=== PATIENT | male | born 1930 | race Caucasian/White ===

== ENCOUNTER 2017-12-23 16:18 | Emergency (ER) | payer MEDICARE, OTHER ==
[~2017-12-23] VITALS: Ht 180.3 cm; Wt 81.8 kg
[2017-12-23 16:25] VITALS: BP 135/88; PULSE 117; RESP 18; TEMP 98.2
[2017-12-23 16:39] VITALS: BP 135/88; PULSE 117; RESP 18; TEMP 98.2; O2SAT 98
--- NOTE | 2017-12-23 17:09 | PD ---
HPI Chief Complaint: Psychiatric Symptoms Time Seen by Provider: 17:06 Travel History International Travel<30 days: No Contact w/Intl Traveler<30days: No Traveled to known affect area: No History of Present Illness HPI 87-year-old male presents to the emergency department under [employer]. According to law enforcement report "darlene has recently been diagnosed with dementia and is unable to determine for himself what care is necessary. Anette was placed in an assisted living facility for his own safety. Today darlene told other residents and his daughter that if he was left in the facility he was going to find a way to kill himself. Darlene was transported to [facility] under a Paz act." The patient is alert and oriented 4 on my exam. He tells me he lives at home. He states his made an appointment for him to go be seen and when he got there people were questioning him and now he is here. I am assuming he is talking about going to the living facility and leading up to this visit here at [place]. He denies stating that he made the statement that he was going to kill himself. He denies suicidal or homicidal ideations. Denies auditory or visual hallucinations. Reports drinking wine occasionally. Denies illicit drug use. Denies chest pain, shortness of breath, abdominal pain, change in urine or stool. He does have bruising noted to his right eye. He said he fell on night and hit the floor. He said his knee gave out, causing him to fall. He reports having a brief loss of consciousness. Denies anticoagulant therapy. Denies vomiting. Denies headache. Denies pain. He denies significant past medical history. When asked him if he has dementia, he states "well that is what some people would probably say." His primary care provider is Dr. Larios. He is allergic to penicillin, atorvastatin, pravastatin, prednisone. He has no other medical complaints. No other modifying factors or associated signs and symptoms. PFSH Past Medical History Hx Anticoagulant Therapy: No Cardiovascular Problems: No Chemotherapy: No Cerebrovascular Accident: Yes (6-8 months ago) Diabetes: No Respiratory: No ?: Not Past Surgical History Hysterectomy: No Social History Tobacco Use: No Allergies-Medications (Allergen,Severity, Reaction): Coded Allergies: atorvastatin (Verified Allergy, Mild, 12/23/17) pravastatin (Verified Allergy, Mild, 12/23/17) prednisone (Verified Allergy, Mild, 12/23/17) Uncoded Allergies: penacillain (Allergy, Severe, 12/23/17) Reported Meds & Prescriptions Reported Meds & Active Scripts Active Reported Pravastatin 40 Mg Tab 40 Mg PO DAILY Metoprolol Tartrate 50 Mg Tab 50 Mg PO BID Pantoprazole (Pantoprazole Sodium) 40 Mg Tab 40 Mg PO DAILY Tylenol (Acetaminophen) 325 Mg Tab 325 Mg PO Q8HR Aspirin 325 Mg Tab 325 Mg PO DAILY Lasix (Furosemide) 40 Mg Tab 40 Mg PO DAILY Spironolactone 25 Mg Tab 25 Mg PO DAILY Ambien (Zolpidem Tartrate) 10 Mg Tab 10 Mg PO HS PRN Review of Systems Except as stated in HPI: all other systems reviewed are Neg Physical Exam Narrative GENERAL: Well-nourished, well-developed elderly, male patient, in no acute distress SKIN: Warm and dry. HEAD: Atraumatic. Normocephalic. EYES: Pupils equal and round at 3 mm with brisk reaction. PERRLA. EOMI. Tenderness on palpation to the right lateral orbit of the eye; lateral area of orbit of right eye with ecchymosis and with minimal edema; no open wounds. ENT: Mucosa pink and moist. NECK: Supple. Trachea midline. CARDIOVASCULAR: Regular rate and rhythm. No murmur appreciated. RESPIRATORY: No accessory muscle use. Clear to auscultation. Breath sounds equal bilaterally. GASTROINTESTINAL: Abdomen soft, non-tender, nondistended. Hepatic and splenic margins not palpable. Bowel sounds are active 4 quadrants. MUSCULOSKELETAL: No obvious deformities. No clubbing. No cyanosis. No edema. NEUROLOGICAL: Awake and alert. Oriented 4. No obvious cranial nerve deficits. Motor grossly within normal limits. Normal speech. Moves all extremities. 5/5 strength to all extremities. PSYCHIATRIC: No delusional thought processes. No hallucinations. Data Data Last Documented VS Vital Signs Date Time Temp Pulse Resp B/P (MAP) Pulse Ox O2 Delivery O2 Flow Rate FiO2 12/23/17 16:39 98.2 117 18 135/88 (104) 98 Orders Orders Complete Blood Count With Diff (12/23/17 17:09) Comprehensive Metabolic Panel (12/23/17 17:09) Thyroid Stimulating Hormone (12/23/17 17:09) Urinalysis - C+S If Indicated (12/23/17 17:09) Psych Screen (12/23/17 17:09) Drug Screen, Random Urine (12/23/17 17:09) Alcohol (Ethanol) (12/23/17 17:09) Salicylates (Aspirin) (12/23/17 17:09) Tylenol (Acetaminophen) (12/23/17 17:09) Ct Brain W/O Iv Contrast(Rout) (12/23/17 ) Ct Facial Bones W/O Iv Cont (12/23/17 ) Potassium Chloride (Kcl) (12/23/17 18:30) Potassium Chloride (Kcl) (12/23/17 19:15) Labs Laboratory Tests Test 12/23/17 16:31 White Blood Count 10.0 TH/MM3 Red Blood Count 4.44 MIL/MM3 Hemoglobin 10.8 GM/DL Hematocrit 33.8 % Mean Corpuscular Volume 76.2 FL Mean Corpuscular Hemoglobin 24.4 PG Mean Corpuscular Hemoglobin Concent 32.0 % Red Cell Distribution Width 15.7 % Platelet Count 382 TH/MM3 Mean Platelet Volume 7.7 FL Neutrophils (%) (Auto) 75.8 % Lymphocytes (%) (Auto) 15.9 % Monocytes (%) (Auto) 7.2 % Eosinophils (%) (Auto) 0.6 % Basophils (%) (Auto) 0.5 % Neutrophils # (Auto) 7.6 TH/MM3 Lymphocytes # (Auto) 1.6 TH/MM3 Monocytes # (Auto) 0.7 TH/MM3 Eosinophils # (Auto) 0.1 TH/MM3 Basophils # (Auto) 0.0 TH/MM3 CBC Comment DIFF FINAL Differential Comment Urine Color YELLOW Urine Turbidity CLEAR Urine pH 7.0 Urine Specific [place] 1.010 Urine Protein TRACE mg/dL Urine Glucose (UA) NEG mg/dL Urine Ketones NEG mg/dL Urine Occult Blood NEG Urine Nitrite NEG Urine Bilirubin NEG Urine Urobilinogen LESS THAN 2.0 MG/DL Urine Leukocyte Esterase NEG Urine WBC 1 /hpf Urine Hyaline Casts 20 /lpf Urine Mucus FEW /lpf Microscopic Urinalysis Comment CULT NOT INDICATED Blood Urea Nitrogen 20 MG/DL Creatinine 1.66 MG/DL Random Glucose 120 MG/DL Total Protein 8.4 GM/DL Albumin 4.0 GM/DL Calcium Level 9.9 MG/DL Alkaline Phosphatase 91 U/L Aspartate Amino Transf (AST/SGOT) 10 U/L Alanine Aminotransferase (ALT/SGPT) 12 U/L Total Bilirubin 0.6 MG/DL Sodium Level 138 MEQ/L Potassium Level 2.8 MEQ/L Chloride Level 97 MEQ/L Carbon Dioxide Level 24.1 MEQ/L Anion Gap 17 MEQ/L Estimat Glomerular Filtration Rate 39 ML/MIN Thyroid Stimulating Hormone 3rd Gen 2.820 uIU/ML Salicylates Level LESS THAN 1.7 MG/DL Urine Opiates Screen NEG Acetaminophen Level LESS THAN 2.0 MCG/ML Urine Barbiturates Screen NEG Urine Amphetamines Screen NEG Urine Benzodiazepines Screen NEG Urine Cocaine Screen NEG Urine Cannabinoids Screen NEG Ethyl Alcohol Level LESS THAN 3 MG/DL MDM Medical Decision Making Medical Screen Exam Complete: Yes Emergency Medical Condition: Yes Medical Record Reviewed: Yes Differential Diagnosis Dementia, subdural hematoma, medical clearance for psychiatric admission Narrative Course Patient presents under a Paz act. Physical examination and vital signs are essentially unremarkable. Patient has no medical complaints to report. Psych screen has been ordered. If the laboratory results are unremarkable, the patient will be medically cleared for psychiatric evaluation and disposition. Patient has ecchymosis noted to the right lateral orbit of the eye. He reports a fall on night. He says he hit his head on the floor and loss of consciousness. CT head and CT facial bones ordered. Diagnosis Primary Impression: Medical clearance for psychiatric admission Additional Impressions: Dementia Qualified Codes: F03.91 - Unspecified dementia with behavioral disturbance Hypokalemia Condition: Stable Yeny Shaikh Dec 23, 2017 17:09
[2017-12-23] MEDS ORDERED: TYLE325T PO (17:31)
[2017-12-23] MEDS ORDERED: METO50TA PO (17:31)
[2017-12-23] MEDS ORDERED: PANT40TA3 PO (17:31)
[2017-12-23] MEDS ORDERED: PRAV40TA2 PO (17:31)
[2017-12-23] MEDS ORDERED: SPIR25TA PO (17:31)
[2017-12-23] MEDS ORDERED: FURO1TAB60 PO (17:31)
[2017-12-23] MEDS ORDERED: ASPI-183 PO (17:31)
[2017-12-23] MEDS ORDERED: AMBI10TA PO (17:31)
[2017-12-23 17:33] LABS: BILIRUBIN, URINE NEG (NEG); BLOOD, URINE NEG (NEG); GLUCOSE,URINE NEG (NEG); HYALINE CAST, URINE 20 /lpf (RARE); KETONE, URINE NEG (NEG); MUCUS URINE FEW /lpf (OCC); NITRITE,URINE NEG (NEG); URINE COLOR YELLOW (YELLW/STRAW); URINE LEUKOCYTE ESTERASE NEG (NEG)
[2017-12-23 17:35] LABS: AUTOMATED NEUTROPHIL # 7.6 TH/MM3 (1.8-7.7); BASOPHIL % 0.5 % (0.0-2.0); EOSINOPHIL # 0.1 TH/MM3 (0-0.4); EOSINOPHIL % 0.6 % (0.0-4.0); HEMATOCRIT 33.8 % (39.0-51.0); HEMOGLOBIN 10.8 GM/DL (13.0-17.0); LYMPH % 15.9 % (9.0-44.0); LYMPHOCYTE # 1.6 TH/MM3 (1.0-4.8); MEAN CELL VOLUME 76.2 FL (80.0-100.0); MEAN CORPUSCULAR HEMOGLOBIN 24.4 PG (27.0-34.0); MEAN PLATELET VOLUME 7.7 FL (7.0-11.0); MONO % 7.2 % (0.0-8.0); MONOCYTE # 0.7 TH/MM3 (0-0.9); NEUT % 75.8 % (16.0-70.0); PLATELET COUNT 382 TH/MM3 (150-450); RED BLOOD COUNT 4.44 MIL/MM3 (4.50-5.90); RED CELL DISTRIBUTION WIDTH 15.7 % (11.6-17.2)
[2017-12-23 18:01] LABS: ALKALINE PHOSPHATASE 91 U/L (45-117); ALT (GPT) 12 U/L (12-78); AST (GOT) 10 U/L (15-37); BICARBONATE 24.1 MEQ/L (21.0-32.0); BLOOD UREA NITROGEN 20 MG/DL (7-18); CALCIUM 9.9 MG/DL (8.5-10.1); CHLORIDE 97 MEQ/L (98-107); CREATININE 1.66 MG/DL (0.60-1.30); GLOMERULAR FILTRATION RATE 39 ML/MIN (>89); GLUCOSE,RANDOM 120 MG/DL (74-106); SODIUM (NA) 138 MEQ/L (136-145); TOTAL BILIRUBIN ADULT 0.6 MG/DL (0.2-1.0); TOTAL PROTEIN 8.4 GM/DL (6.4-8.2)
[2017-12-23 18:11] LABS: ACETAMINOPHEN LESS THAN 2.0 MCG/ML (10.0-30.0)
[2017-12-23] MEDS ORDERED: POTASSIUM CHLORIDE 20 MEQ CONTROLLED RELEASE TAB PO ONE ×2 (18:30→19:15)
[2017-12-23 19:19] VITALS: BP 117/81; PULSE 101; RESP 18; O2SAT 98
--- NOTE | 2017-12-23 19:32 | RADRPT ---
EXAM DATE: 12/23/2017 6:58 PM EDT AGE/SEX: 87 years / Male INDICATIONS: Patient fell and hit head. CLINICAL DATA: This is the patient's initial encounter. Patient reports that signs and symptoms have been present for 1 day and indicates a pain score of 3/10. MEDICAL/SURGICAL HISTORY: Cerebrovascular disease. None. RADIATION DOSE: 29.92 CTDI (mGy) COMPARISON: No prior [place] exams available for comparison. TECHNIQUE: CT of the head without contrast. Using automated exposure control and adjustment of the mA and/or kV according to patient size, radiation dose was kept as low as reasonably achievable to ob tain optimal diagnostic quality images. FINDINGS: Cerebrum: The ventricles are normal for age. No evidence of midline shift, mass lesion, hemorrhage or acute infarction. No extraaxial fluid collections are seen. Posterior Fossa: The cerebellum and brainstem are intact. The 4th ventricle is midline. The cerebe llopontine angle is unremarkable. Extracranial: The visualized portion of the orbits is intact. Skull: The calvaria is intact. No evidence of skull fracture. CONCLUSION: 1. No acute intracranial abnormalities. Electronically signed by: Ernesto Contreras MD 12/23/2017 7:30 PM EDT
--- NOTE | 2017-12-23 19:35 | RADRPT ---
EXAM DATE: 12/23/2017 6:59 PM EDT AGE/SEX: 87 years / Male INDICATIONS: Patient fell and hit head. CLINICAL DATA: This is the patient's initial encounter. Patient reports that signs and symptoms have been present for 1 day and indicates a pain score of 3/10. MEDICAL/SURGICAL HISTORY: Cerebrovascular disease. Umbilical hernia repair. RADIATION DOSE: 50.80 CTDI (mGy) COMPARISON: No prior [place] exams available for comparison. TECHNIQUE: Contiguous images in the axial and coronal planes were obtained using helical multirow de tector technique. Using automated exposure control and adjustment of the mA and/or kV according to p atient size, radiation dose was kept as low as reasonably achievable to obtain optimal diagnostic elsy lity images. FINDINGS: No facial bone fractures are identified. Visualized paranasal sinuses are clear. The globes are intac t. Temporomandibular joints appear intact. Dental hardware present. CONCLUSION: 1. No acute findings. Electronically signed by: Ernesto Contreras MD 12/23/2017 7:34 PM EDT
[2017-12-24 06:38] VITALS: BP 130/76; PULSE 79; RESP 18; O2SAT 97
[2017-12-24] MEDS ORDERED: LORazepam 2 MG/ML VIAL IV PUSH ONE (10:30)
--- NOTE | 2017-12-24 11:26 | PD ---
History of Present Illness Chief Complaint: Psychiatric Symptoms Time Seen by Provider: 11:04 Travel History International Travel<30 Days: No Contact w/Intl Traveler<30days: No Known affected area: No Legal Status Legal Status: Paz Act Paz Act Signed By: LAY NORIEGA History of Present Illness: History of Present Illness HPI 87-year-old, , male with no previous psychiatric history, recent fall with head injury, reported presents to the emergency department under Paz act. According to law enforcement report "Tim has recently been diagnosed with dementia and is unable to determine for himself what care is necessary. Tim was placed in an assisted living facility for his own safety. Today Tim told other residents and his daughter that if he was left in the facility he was going to find a way to kill himself." The patient did not make any attempt at harming himself or harming anyone else. The patient has been monitored in the ED. He has not been aggressive. He has required redirection because of wandering outside of his room but has been redirectable with verbal prompting as per nursing report. Patient is seen. He is found sitting on his bed. He is alert, oriented 4. He knows he is not a hospital although he tells me" it feels like a longterm". His complete speech is clear and logical. He answers questions appropriately. He does not appear to be internally stimulated and denies any hallucinations. He denies any depression or anxiety although states he" would like to get out of here and go back home". He denies any suicidal ideation, intent or plan. When he is confronted with the alleged statements on the Paz act he states "I might have said that as a figure of speech." In terms of memory the patient is able to name the president"Hakeem" and the previous President as"Obama". He tells me that he keeps up with what is happening around the world and that they are more is in the [place]. He is able to spell the word WORLD and backwards DLORW. Recall is 3 out of 3, 2 out of 3, 0 out of 3. Telephone call to his at [phone]. No answer. Message with call back number left. Telephone call to his daughter Selena at [phone]. No answer.Unable to leave call back number. PFSH Past Medical History Hx Anticoagulant Therapy: No Cardiovascular Problems: No Chemotherapy: No Cerebrovascular Accident: Yes (6-8 months ago) Diabetes: No Respiratory: No ?: Not Past Surgical History Hysterectomy: No Psychiatric History Psychiatric History Hx Psychiatric Treatment: NONE History of Inpatient Treatment: No Guns or firearms in home: No Social History Patient is born in [place]. 47 years to Tiffany. 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 Was living at home with his until admission to [facility] on December 23, 2017. Hx Alcohol Use: Yes (Occasional glass of wine) Hx Tobacco Use: No Hx Substance Use: No Hx of Substance Use Treatment: No Family Psychiatric History None reported Allergies-Medications (Allergen,Severity, Reaction): Coded Allergies: atorvastatin (Verified Allergy, Mild, 12/23/17) pravastatin (Verified Allergy, Mild, 12/23/17) prednisone (Verified Allergy, Mild, 12/23/17) Penicillins (Verified Allergy, Unknown, 12/24/17) Reported Meds & Prescriptions Reported Meds & Active Scripts Active Reported Pravastatin 40 Mg Tab 40 Mg PO DAILY Metoprolol Tartrate 50 Mg Tab 50 Mg PO BID Pantoprazole (Pantoprazole Sodium) 40 Mg Tab 40 Mg PO DAILY Tylenol (Acetaminophen) 325 Mg Tab 325 Mg PO Q8HR Aspirin 325 Mg Tab 325 Mg PO DAILY Lasix (Furosemide) 40 Mg Tab 40 Mg PO DAILY Spironolactone 25 Mg Tab 25 Mg PO DAILY Ambien (Zolpidem Tartrate) 10 Mg Tab 10 Mg PO HS PRN Review of Systems Psychiatric: DENIES: Anxiety, Confusion, Mood changes, Depression, Hallucinations, Agitation, Suicidal Ideation, Homicidal Ideation, Delusions Mental Status Examination Appearance: Appropriate Consciousness: Alert Orientation: Person, Place, Date/Time Motor Activity: Normal gait Speech: Unremarkable Language: Adequate Fund of Knowledge: Adequate Attention and Concentration: Adequate Memory: Impaired Mood: Appropriate, Anxious (sl anxious) Affect: Appropriate Thought Process & Associations: Intact, Logical, Goal directed Thought Content: Appropriate Hallucination Type: None Delusion Type: None Suicidal Ideation: No Suicidal Plan: No Suicidal Intention: No Homicidal Ideation: No Homicidal Plan: No Homicidal Intention: No Insight: Fair Judgment: Adequate MDM Medical Decision Making Medical Record Reviewed: Yes Assessment/Plan 87-year-old, , male with no previous psychiatric history, recent fall with head injury, reported presents to the emergency department under Paz act. According to law enforcement report "Tim has recently been diagnosed with dementia and is unable to determine for himself what care is necessary. Tim was placed in an assisted living facility for his own safety. Today Tim told other residents and his daughter that if he was left in the facility he was going to find a way to kill himself." The patient did not make any attempt at harming himself or harming anyone else. Patient is monitored in the emergency department with no suicidality. The patient has no recollection of making the statements and does say that if he ever made the statement it was as a figure of speech. He denies any suicidal or homicidal ideation, intent or plan. The patient does not present any evidence of unstable mental illness has defined under the Paz act. He may have some cognitive impairment related to dementia but that is not criteria for a Paz act. I have attempted to contact family to no avail. I have lifted the Paz act. Will have case management involved for disposition. BA is lifted. Orders Orders Complete Blood Count With Diff (12/23/17 17:09) Comprehensive Metabolic Panel (12/23/17 17:09) Thyroid Stimulating Hormone (12/23/17 17:09) Urinalysis - C+S If Indicated (12/23/17 17:09) Psych Screen (12/23/17 17:09) Drug Screen, Random Urine (12/23/17 17:09) Alcohol (Ethanol) (12/23/17 17:09) Salicylates (Aspirin) (12/23/17 17:09) Tylenol (Acetaminophen) (12/23/17 17:09) Ct Brain W/O Iv Contrast(Rout) (12/23/17 ) Ct Facial Bones W/O Iv Cont (12/23/17 ) Potassium Chloride (Kcl) (12/23/17 18:30) Potassium Chloride (Kcl) (12/23/17 19:15) Diet Regular Basic (12/24/17 Breakfast) Lorazepam Inj (Ativan Inj) (12/24/17 10:30) Results Vital Signs Date Time Temp Pulse Resp B/P (MAP) Pulse Ox O2 Delivery O2 Flow Rate FiO2 12/24/17 06:38 79 18 130/76 (94) 97 Room Air 12/23/17 19:19 101 18 117/81 (93) 98 Room Air 12/23/17 16:39 98.2 117 18 135/88 (104) 98 12/23/17 16:25 98.2 117 18 135/88 (104) Laboratory Tests Test 12/23/17 16:31 White Blood Count 10.0 Red Blood Count 4.44 Hemoglobin 10.8 Hematocrit 33.8 Mean Corpuscular Volume 76.2 Mean Corpuscular Hemoglobin 24.4 Mean Corpuscular Hemoglobin Concent 32.0 Red Cell Distribution Width 15.7 Platelet Count 382 Mean Platelet Volume 7.7 Neutrophils (%) (Auto) 75.8 Lymphocytes (%) (Auto) 15.9 Monocytes (%) (Auto) 7.2 Eosinophils (%) (Auto) 0.6 Basophils (%) (Auto) 0.5 Neutrophils # (Auto) 7.6 Lymphocytes # (Auto) 1.6 Monocytes # (Auto) 0.7 Eosinophils # (Auto) 0.1 Basophils # (Auto) 0.0 CBC Comment DIFF FINAL Differential Comment Urine Color YELLOW Urine Turbidity CLEAR Urine pH 7.0 Urine Specific [place] 1.010 Urine Protein TRACE Urine Glucose (UA) NEG Urine Ketones NEG Urine Occult Blood NEG Urine Nitrite NEG Urine Bilirubin NEG Urine Urobilinogen LESS THAN 2.0 Urine Leukocyte Esterase NEG Urine WBC 1 Urine Hyaline Casts 20 Urine Mucus FEW Microscopic Urinalysis Comment CULT NOT INDICATED Blood Urea Nitrogen 20 Creatinine 1.66 Random Glucose 120 Total Protein 8.4 Albumin 4.0 Calcium Level 9.9 Alkaline Phosphatase 91 Aspartate Amino Transf (AST/SGOT) 10 Alanine Aminotransferase (ALT/SGPT) 12 Total Bilirubin 0.6 Sodium Level 138 Potassium Level 2.8 Chloride Level 97 Carbon Dioxide Level 24.1 Anion Gap 17 Estimat Glomerular Filtration Rate 39 Thyroid Stimulating Hormone 3rd Gen 2.820 Salicylates Level LESS THAN 1.7 Urine Opiates Screen NEG Acetaminophen Level LESS THAN 2.0 Urine Barbiturates Screen NEG Urine Amphetamines Screen NEG Urine Benzodiazepines Screen NEG Urine Cocaine Screen NEG Urine Cannabinoids Screen NEG Ethyl Alcohol Level LESS THAN 3 Diagnosis Primary Impression: Dementia Additional Impression: Hypokalemia Psychiatrically Cleared: Yes Disposition: 03 DISCHARGE TO SNF Condition: Stable Problem Qualifiers Primary Impression: Dementia Qualified Codes: F03.91 - Unspecified dementia with behavioral disturbance Marine Samuel Dec 24, 2017 11:26
--- NOTE | 2017-12-24 12:17 | PD ---
Physical Exam Date Seen by Provider: Dec 24, 2017 Time Seen by Provider: 12:15 Narrative For full history and physical examination please see previous notes. Data Data Last Documented VS Vital Signs Date Time Temp Pulse Resp B/P (MAP) Pulse Ox O2 Delivery O2 Flow Rate FiO2 12/24/17 06:38 79 18 130/76 (94) 97 Room Air 12/23/17 16:39 98.2 Orders Orders Complete Blood Count With Diff (12/23/17 17:09) Comprehensive Metabolic Panel (12/23/17 17:09) Thyroid Stimulating Hormone (12/23/17 17:09) Urinalysis - C+S If Indicated (12/23/17 17:09) Psych Screen (12/23/17 17:09) Drug Screen, Random Urine (12/23/17 17:09) Alcohol (Ethanol) (12/23/17 17:09) Salicylates (Aspirin) (12/23/17 17:09) Tylenol (Acetaminophen) (12/23/17 17:09) Ct Brain W/O Iv Contrast(Rout) (12/23/17 ) Ct Facial Bones W/O Iv Cont (12/23/17 ) Potassium Chloride (Kcl) (12/23/17 18:30) Potassium Chloride (Kcl) (12/23/17 19:15) Diet Regular Basic (12/24/17 Breakfast) Lorazepam Inj (Ativan Inj) (12/24/17 10:30) Ed Discharge Order (12/24/17 12:12) Labs Laboratory Tests Test 12/23/17 16:31 White Blood Count 10.0 TH/MM3 Red Blood Count 4.44 MIL/MM3 Hemoglobin 10.8 GM/DL Hematocrit 33.8 % Mean Corpuscular Volume 76.2 FL Mean Corpuscular Hemoglobin 24.4 PG Mean Corpuscular Hemoglobin Concent 32.0 % Red Cell Distribution Width 15.7 % Platelet Count 382 TH/MM3 Mean Platelet Volume 7.7 FL Neutrophils (%) (Auto) 75.8 % Lymphocytes (%) (Auto) 15.9 % Monocytes (%) (Auto) 7.2 % Eosinophils (%) (Auto) 0.6 % Basophils (%) (Auto) 0.5 % Neutrophils # (Auto) 7.6 TH/MM3 Lymphocytes # (Auto) 1.6 TH/MM3 Monocytes # (Auto) 0.7 TH/MM3 Eosinophils # (Auto) 0.1 TH/MM3 Basophils # (Auto) 0.0 TH/MM3 CBC Comment DIFF FINAL Differential Comment Urine Color YELLOW Urine Turbidity CLEAR Urine pH 7.0 Urine Specific [place] 1.010 Urine Protein TRACE mg/dL Urine Glucose (UA) NEG mg/dL Urine Ketones NEG mg/dL Urine Occult Blood NEG Urine Nitrite NEG Urine Bilirubin NEG Urine Urobilinogen LESS THAN 2.0 MG/DL Urine Leukocyte Esterase NEG Urine WBC 1 /hpf Urine Hyaline Casts 20 /lpf Urine Mucus FEW /lpf Microscopic Urinalysis Comment CULT NOT INDICATED Blood Urea Nitrogen 20 MG/DL Creatinine 1.66 MG/DL Random Glucose 120 MG/DL Total Protein 8.4 GM/DL Albumin 4.0 GM/DL Calcium Level 9.9 MG/DL Alkaline Phosphatase 91 U/L Aspartate Amino Transf (AST/SGOT) 10 U/L Alanine Aminotransferase (ALT/SGPT) 12 U/L Total Bilirubin 0.6 MG/DL Sodium Level 138 MEQ/L Potassium Level 2.8 MEQ/L Chloride Level 97 MEQ/L Carbon Dioxide Level 24.1 MEQ/L Anion Gap 17 MEQ/L Estimat Glomerular Filtration Rate 39 ML/MIN Thyroid Stimulating Hormone 3rd Gen 2.820 uIU/ML Salicylates Level LESS THAN 1.7 MG/DL Urine Opiates Screen NEG Acetaminophen Level LESS THAN 2.0 MCG/ML Urine Barbiturates Screen NEG Urine Amphetamines Screen NEG Urine Benzodiazepines Screen NEG Urine Cocaine Screen NEG Urine Cannabinoids Screen NEG Ethyl Alcohol Level LESS THAN 3 MG/DL [facility] Medical Record Reviewed: Yes Supervised Visit with MI: No Narrative Course Patient is a 7-year-old male that presented to emergency department under Paz act. He was seen, evaluated in the emergency department, medically cleared. He was then seen and evaluated by the psychiatric nurse practitioner, at that time the Paz act was lifted. Patient is to be discharged home. Diagnosis Primary Impression: Dementia Qualified Codes: F03.91 - Unspecified dementia with behavioral disturbance Additional Impression: Hypokalemia Referrals: Primary Care Physician 2 days Patient Instructions: Dementia (ED), General Instructions Additional Instruction: Follow-up with your primary doctor Return to emergency department for any new or worsening symptoms Med/Other Pt SpecificInfo: No Change to Meds Disposition: 01 DISCHARGE HOME Condition: Stable Dana Alvarez Dec 24, 2017 12:17
[2017-12-24 14:52] VITALS: BP 129/65; PULSE 85; RESP 18; O2SAT 97
[2017-12-24 19:01] VITALS: BP 128/78
== END 2017-12-24 12:25 | disposition home or self-care (01) ==
LOC: NEPD 16:18
DX: F03.91 Unspecified dementia, unspecified severity, with behavioral disturbance (principal); E87.6 Hypokalemia; S06.9X9A Unspecified intracranial injury with loss of consciousness of unspecified duration, initial encounter; S05.11XA Contusion of eyeball and orbital tissues, right eye, initial encounter; W19.XXXA Unspecified fall, initial encounter; Z88.0 Allergy status to penicillin; Z88.8 Allergy status to other drugs, medicaments and biological substances
CPT/HCPCS: 70450; 70486; 80053; 80307; 81001; 84443; 85025; 96374; 99284; J2060